=== PATIENT | female | born 1975 | race Caucasian/White ===

== ENCOUNTER 2017-11-16 20:59 | Emergency (ER) | payer OTHER ==
[2017-11-16 20:59] VITALS: BMI 32.9
[2017-11-16 21:07] VITALS: BP 153/83; PULSE 80; RESP 18; TEMP 98; O2SAT 99
--- NOTE | 2017-11-16 21:19 | ED PDOC ---
HPI: General Adult Time Seen by Provider: 11/16/17 21:10 Chief Complaint (Nursing): Medical Clearance Chief Complaint (Provider): Denies complaints History Per: Patient History/Exam Limitations: no limitations Additional Complaint(s): 42 yo female with history of opiate abuse and anxiety brought by police for evaluation. PT states that she is going throu opiate withdrawal. Pt denies abdominal pain, pelvic pain, N/V/D, headache. PT denies HI/SI. Pt calm and cooperative in ER. Normal HR Past Medical History Reviewed: Historical Data, Nursing Documentation, Vital Signs Vital Signs: Last Vital Signs Temp 98 F 11/16/17 21:03 Pulse 80 11/16/17 21:03 Resp 18 11/16/17 21:03 BP 153/83 H 11/16/17 21:03 Pulse Ox 99 11/16/17 21:03 - Medical History PMH: Anxiety - Surgical History Surgical History: No Surg Hx - Family History Family History: States: Unknown Family Hx - Living Arrangements Living Arrangements: With Family - Social History Current smoker - smoking cessation education provided: No Alcohol: None - Immunization History Hx Tetanus Toxoid Vaccination: No Hx Influenza Vaccination: No Hx Pneumococcal Vaccination: No - Home Medications Home Medications: Ambulatory Orders Medication Instructions Recorded Nitrofurantoin Macrocrystals 1 cap PO BID #14 cap 08/15/15 [Macrobid] oxyCODONE/Acetaminophen [Percocet 1 tab PO QID PRN #10 tab 08/15/15 5/325 mg Tab] - Allergies Allergies/Adverse Reactions: Allergies Allergy/AdvReac Type Severity Reaction Status Date / Time No Known Allergies Allergy Verified 08/15/15 00:05 Review of Systems ROS Statement: Except As Marked, All Systems Reviewed And Found Negative Constitutional: Negative for: Fever, Chills Gastrointestinal: Negative for: Nausea, Vomiting, Abdominal Pain, Diarrhea Genitourinary Female: Negative for: Dysuria, Frequency, Vaginal Discharge, Vaginal Bleeding, Pelvic Pain Musculoskeletal: Negative for: Back Pain Neurological: Negative for: Weakness, Numbness Psych: Negative for: Psychosis, Suicidal ideation Physical Exam - Reviewed Nursing Documentation Reviewed: Yes Vital Signs Reviewed: Yes - Physical Exam Appears: Positive for: Well, Non-toxic, No Acute Distress Head Exam: Positive for: ATRAUMATIC, NORMAL INSPECTION, NORMOCEPHALIC Skin: Positive for: Normal Color, Warm, DRY Eye Exam: Positive for: Normal appearance ENT: Positive for: Normal ENT Inspection Neck: Positive for: Normal, Painless ROM Cardiovascular/Chest: Positive for: Regular Rate, Rhythm Respiratory: Positive for: CNT, Normal Breath Sounds Gastrointestinal/Abdominal: Positive for: Normal Exam, Soft. Negative for: Tenderness Back: Positive for: Normal Inspection Extremity: Positive for: Normal ROM Neurologic/Psych: Positive for: Alert, Oriented - ECG O2 Sat by Pulse Oximetry: 99 Disposition - Clinical Impression Clinical Impression: Normal exam - Patient ED Disposition Is Patient to be Admitted: No Counseled Patient/Family Regarding: Diagnosis, Need For Followup - Disposition Disposition: Routine/Home Disposition Time: 21:19 Condition: STABLE Additional Instructions: Pt is medically and psychiatrically stable for incarceration.
== END 2017-11-16 21:30 ==
LOC: H.ER 20:59
DX: F41.9 Anxiety disorder, unspecified (principal)